=== PATIENT | female | born 1935 | race Asian ===

== ENCOUNTER 2018-07-21 09:31 | Emergency (ER) | payer MEDICARE, OTHER ==
--- NOTE | 2018-07-21 09:56 | ER Document Report ---
HPI - HPI Patient complains to provider of: dog bite Time Seen by Provider: 07/21/18 09:38 Onset: Just prior to arrival Onset/Duration: Sudden Severity: Mild Pain Level: 1 Context: Patient presents to the emergency department with complaints of right forearm dog bite. Patient reports she was in her backyard when the dogs next-door went under the fence and jumped at her. She reports they were 5 young dogs and 4 older dogs. She reports one grabbed her right forearm ripped her shirt and she now has 3 bite krishnan to the right forearm. No active bleeding. Blood noted on her ripped shirt. Patient reports she did not fall she stood her ground called for the neighbor and the neighbor came over and yelled at the dogs and got them away. She reports the dog's shots are up-to-date. Patient is not on anticoagulants. Reports her tetanus is up-to-date. Associated Symptoms: None Exacerbated by: Denies Relieved by: Denies Similar symptoms previously: No Recently seen / treated by doctor: No - CONSTITUTIONAL Constitutional: DENIES: Fever, Chills - NEURO Neurology: DENIES: Headache, Vision blurred - REPRODUCTIVE Reproductive: DENIES: : - MUSCULOSKELETAL Musculoskeletal: REPORTS: Extremity pain Past Medical History - General Information source: Patient, Relative - spouse - Social History Smoking Status: Never Smoker Chew tobacco use (# tins/day): No Frequency of alcohol use: None Drug Abuse: None Lives with: Family Family History: None Patient has suicidal ideation: No Patient has homicidal ideation: No - Past Medical History Cardiac Medical History: Reports: Hx Hypercholesterolemia, Hx Hypertension Pulmonary Medical History: Reports: Hx Pneumonia Denies: Hx Tuberculosis Endocrine Medical History: Reports: Hx Diabetes Mellitus Type 2 Renal/ Medical History: Denies: Hx Peritoneal Dialysis GI Medical History: Reports: Hx Gastroesophageal Reflux Disease, Hx Pancreatitis Past Surgical History: Reports: Hx Appendectomy, Hx Hysterectomy - Immunizations Immunizations up to date: Yes Hx Diphtheria, Pertussis, Tetanus Vaccination: Yes Hx Pneumococcal Vaccination: 03/06/09 Vertical Provider Document - CONSTITUTIONAL Agree With Documented VS: Yes Exam Limitations: No Limitations General Appearance: WD/WN, No Apparent Distress - anxious but easily calmed - INFECTION CONTROL TRAVEL OUTSIDE OF THE [place] IN LAST 30 DAYS: No - HEENT HEENT: Atraumatic, Normocephalic - NECK Neck: Supple - RESPIRATORY Respiratory: Breath Sounds Normal, No Respiratory Distress - CARDIOVASCULAR Cardiovascular: Regular Rate, Regular Rhythm - MUSCULOSKELETAL/EXTREMETIES Musculoskeletal/Extremeties: MAEW, FROM, Non-Tender - NEURO Level of Consciousness: Awake, Alert, Appropriate Motor/Sensory: No Motor Deficit - DERM Integumentary: Warm, Dry Adult Front & Back Diagram: 1 - 2 tiny bite krishnan with 1 larger bite melyssa, no active bleeding Course - Re-evaluation Re-evalutation: 07/21/18 10:06 Patient and instructed on plan of care to include Augmentin and importance of monitoring her forearm to ensure it does not get infected. Patient has not taken her blood pressure medications she is very anxious. BP is elevated, patient was instructed to take her blood pressure medications when she returns home. She denies headache chest pain. 07/21/18 10:10 area cleaned, bandaid applied, pt and educated on s/s infection, augmentin and the importance of follow-up with primary care provider for sandra Kwong understanding to all instructions. 07/21/18 10:32 Blood pressure 142/81 patient had no further questions discharged home Dictation of this chart was performed using voice recognition software; therefore, there may be some unintended grammatical errors. - Vital Signs Vital signs: Temp Pulse Resp BP Pulse Ox 98.2 F 86 20 145/119 H 96 07/21/18 09:39 07/21/18 09:39 07/21/18 09:39 07/21/18 09:39 07/21/18 09:39 Discharge - Discharge Clinical Impression: Dog bite Qualifiers: Encounter type: initial encounter Qualified Code(s): W54.0XXA - Bitten by dog, initial encounter Condition: Stable Disposition: HOME, SELF-CARE Instructions: Acetaminophen, Animal Bites ([facility]), Augmentin ([facility]) Additional Instructions: *You have been treated for a dog bite *Take medication as prescribed, take tylenol as indicated for pain *Monitor the site for signs of infection such as increasing pain, redness, swelling, warmth *Keep the area clean *Follow up with a primary care provider in 5 days for a recheck *Return to ED for signs of infection, worsening condition, changes, needs, concerns Monitor your blood pressure. Your blood pressure was elevated today. This may be because you were anxious, in pain or because you need medication. It is important to follow up with your primary care provider for full evaluation. Prescriptions: Amox Tr/Potassium Clavulanate [Augmentin 875-125 mg Tablet] 1 tab PO BID #20 tablet Referrals: AMOS AU MD [Primary Care Provider] - Follow up in 3-5 days
[2018-07-21 10:19] VITALS: BP 142/81
== END 2018-07-21 10:20 | disposition home or self-care (01) ==
LOC: ER 09:31
DX: S51.851A Open bite of right forearm, initial encounter (principal); W54.0XXA Bitten by dog, initial encounter; E11.9 Type 2 diabetes mellitus without complications; I10 Essential (primary) hypertension; Z79.899 Other long term (current) drug therapy
CPT/HCPCS: 99283

== ENCOUNTER → 2018-10-23 | Outpatient (CLI) | payer MEDICARE, OTHER ==
--- NOTE | 2018-10-23 10:09 | WOMENS IMAGING REPORT ---
EXAM DESCRIPTION: BONE DENSITY HIP/SPINE COMPLETED DATE/TIME: 10/23/2018 9:56 am REASON FOR STUDY: Z78.0 ASYMPTOMATIC MENOPAUSAL STATE M81.0 AGE-RELATED OSTEOPOROSIS W/O CURRENT PA THOLOGICAL FRAC Z78.0 ASYMPTOMATIC MENOPAUSAL STATE COMPARISON: None. TECHNIQUE: Dual-Energy X-ray Absorptiometry (DEXA) of the AP Spine and Hip. LIMITATIONS: None. FINDINGS: LUMBAR SPINE: The bone mineral density (BMD) measured from L1-L4 in the AP projection correlates with a T-score of -1.8, which is osteopenia as defined by the World Health Organization. HIP: The bone mineral density (BMD) measured in the left hip correlates with a T-score of -2.5, which is o steopenia as defined by the World Health Organization. IMPRESSION: 1. LUMBAR SPINE: OSTEOPENIA. 2. HIP: OSTEOPENIA. COMMENT: The World Health Organization defines low BMD as follows: T-score: Normal: Greater than -1.0 Osteopenia: Between -1.0 and -2.5 Osteoporosis: Less than -2.5 without fractures Established osteoporosis: Less than -2.5 with fractures In general, you may wish to consider: Diagnosis Treatment Follow-up DEXA Normal BMD Prevention 2-3 years Osteopenia Prevention/Therapy 1-2 years Osteoporosis Therapy Yearly TECHNICAL DOCUMENTATION: JOB ID: [id number] 6231[employer]- All Rights Reserved Reading location - IP/workstation name: [email or web address]
== END ==
LOC: WI 09:28
PROVIDERS: ATTEND Internal Medicine
DX: M85.89 Other specified disorders of bone density and structure, multiple sites (principal); Z78.0 Asymptomatic menopausal state
CPT/HCPCS: 77080

== ENCOUNTER → 2019-11-21 | Outpatient (CLI) | payer MEDICARE, OTHER ==
--- NOTE | 2019-11-21 13:38 | RADIOLOGY REPORT (SQ) ---
EXAM DESCRIPTION: SHOULDER BILAT 2 OR MORE VIEWS IMAGES COMPLETED DATE/TIME: 11/21/2019 12:53 pm REASON FOR STUDY: (M24.619)ANKYLOSIS, UNSPECIFIED SHOULDER M24.619 ANKYLOSIS, UNSPECIFIED SHOULDER COMPARISON: None. NUMBER OF VIEWS: Three views. TECHNIQUE: Internal rotation, external rotation, and Y view images acquired of the right and left sh oulder. LIMITATIONS: None. FINDINGS: MINERALIZATION: Normal. BONES: No acute fracture. No worrisome bone lesions. JOINTS: No dislocation. VISUALIZED LUNGS AND RIBS: No pneumothorax. No rib fracture. SOFT TISSUES: No radiopaque foreign body. OTHER: No other significant finding. IMPRESSION: NEGATIVE STUDY OF THE RIGHT AND LEFT SHOULDERS. NO RADIOGRAPHIC EVIDENCE OF ACUTE INJURY . NO EXPLANATION FOR PAIN. TECHNICAL DOCUMENTATION: JOB ID: [id number] 2010 [employer]- All Rights Reserved Reading location - IP/workstation name: [email or web address]
== END ==
LOC: RAD 12:16
PROVIDERS: ATTEND Internal Medicine
DX: M24.611 Ankylosis, right shoulder (principal); M24.612 Ankylosis, left shoulder